=== PATIENT | male | born 1960 | race Caucasian/White ===

== ENCOUNTER 2016-10-17 20:16 | Emergency (ER) | payer OTHER ==
[2016-10-17 20:38] LABS: HEMOGLOBIN 16.6 gm/dl (14.0-17.5); RED BLOOD COUNT 5.35 M/UL (4.20-5.50)
== END 2016-10-18 01:43 | disposition home or self-care (01) ==
LOC: ER1 20:16
PROVIDERS: Emergency Medicine
DX: R07.2 Precordial pain (principal); I10 Essential (primary) hypertension
CPT/HCPCS: 36415; 71010; 80053; 82550; 82553; 83874; 84484; 85025; 93005; 99285

== ENCOUNTER 2020-08-29 13:03 | Emergency (ER) | payer OTHER ==
[~2020-08-29 13:03] MED LIST: LIPITOR10 MG PO; MULTIVITAMINS1 EAC1 PO; NORVASC5 MG PO
[2020-08-29 14:20] LABS: HEMOGLOBIN 15.3 gm/dl (14.0-17.5); RED BLOOD COUNT 5.03 M/UL (4.20-5.50); WHITE BLOOD COUNT 8.7 K/UL (4.5-11.0)
[2020-08-29 14:49] LABS: BUN/CREATININE RATIO 12 (0-10)
[2020-08-29] MEDS ORDERED: MEDROL DOSEPAK 24 MG PO (16:21)
[2020-08-29] MEDS ORDERED: ATROVENT-HFA12.9 GM INH (16:21)
== END 2020-08-29 16:33 | disposition home or self-care (01) ==
LOC: ER1 13:03
PROVIDERS: Physician Assistant Medical
DX: R05 Cough (principal); R06.02 Shortness of breath; R07.1 Chest pain on breathing; I10 Essential (primary) hypertension; Z85.51 Personal history of malignant neoplasm of bladder
CPT/HCPCS: 71045; 80053; 82550; 82553; 83605; 83874; 84484; 85025; 85379; 93005; 99284

== ENCOUNTER 2021-01-02 16:02 | Emergency (ER) | payer OTHER ==
[~2021-01-02 16:02] MED LIST changes: +ATROVENT-HFA12.9 GM INH; +MEDROL DOSEPAK 24 MG PO
[2021-01-02 17:04] LABS: HEMOGLOBIN 15.1 gm/dl (14.0-17.5); RED BLOOD COUNT 4.68 M/UL (4.20-5.50); WHITE BLOOD COUNT 11.5 K/UL (4.5-11.0)
[2021-01-02 17:27] LABS: BUN/CREATININE RATIO 6 (0-10)
[2021-01-02] MEDS ORDERED: AUGMENTIN 875-1 EACH PO (21:10)
[2021-01-02] MEDS ORDERED: ZOFRAN4 MG PO (21:10)
== END 2021-01-02 21:35 | disposition home or self-care (01) ==
LOC: ER1 16:02
PROVIDERS: Physician Assistant
DX: K52.9 Noninfective gastroenteritis and colitis, unspecified (principal); Z90.49 Acquired absence of other specified parts of digestive tract; Z20.822 Contact with and (suspected) exposure to COVID-19
CPT/HCPCS: 0240U; 71045; 80053; 81001; 82550; 82553; 83605; 83690; 83874; 84484; 85025; 87040; 87086; 93005; 96374; 96375; 96376; 99284; J2270; J2405; J7030; Q9967

== ENCOUNTER 2021-01-06 11:27 | Emergency (ER) | payer OTHER ==
[~2021-01-06 11:27] MED LIST changes: +AUGMENTIN 875-1 EACH PO; +ZOFRAN4 MG PO
[2021-01-06 12:30] LABS: HEMOGLOBIN 14.8 gm/dl (14.0-17.5); RED BLOOD COUNT 4.71 M/UL (4.20-5.50); WHITE BLOOD COUNT 7.9 K/UL (4.5-11.0)
[2021-01-06] MEDS ORDERED: BENTYL 10MG CAP10 MG PO (16:12)
[2021-01-06] MEDS ORDERED: FLAGYL500 MG PO (16:12)
== END 2021-01-06 16:44 | disposition home or self-care (01) ==
LOC: ER1 11:27
PROVIDERS: Emergency Medicine
DX: K57.90 Diverticulosis of intestine, part unspecified, without perforation or abscess without bleeding (principal)
CPT/HCPCS: 71045; 80053; 83605; 83690; 85025; 85610; 85730; 87040; 93005; 96374; 96375; 99284; J2270; J2405; Q9965

== ENCOUNTER 2021-10-30 14:47 | Emergency (ER) | payer BC ==
[~2021-10-30 14:47] MED LIST changes: +BENTYL 10MG CAP10 MG PO; +FLAGYL500 MG PO
[2021-10-30] MEDS ORDERED: OMEPRAZOLE20 M1 PO (17:30)
[2021-10-30] MEDS ORDERED: NAPROSYN500 MG PO (17:30)
== END 2021-10-30 17:45 | disposition home or self-care (01) ==
LOC: ER1 14:47
DX: S83.512A Sprain of anterior cruciate ligament of left knee, initial encounter (principal); W19.XXXA Unspecified fall, initial encounter; Y92.009 Unspecified place in unspecified non-institutional (private) residence as the place of occurrence of the external cause
CPT/HCPCS: 73564; 99283

== ENCOUNTER → 2021-11-11 | Outpatient (CLI) | payer BC ==
[~2021-11-11] MED LIST changes: +NAPROSYN500 MG PO; +OMEPRAZOLE20 M1 PO
== END ==
LOC: KOH-I 08:26
DX: S83.242A Other tear of medial meniscus, current injury, left knee, initial encounter (principal); M17.12 Unilateral primary osteoarthritis, left knee
CPT/HCPCS: 73721

== ENCOUNTER → 2022-04-13 | Outpatient (CLI) | payer BC | LOC: KOH-I 14:04 | DX: N28.9 Disorder of kidney and ureter, unspecified (principal) | CPT/HCPCS: 76775 ==